=== PATIENT | male | born 1970 | race Two or more races ===

== ENCOUNTER 2023-04-12 13:00 | Outpatient (OUT) | payer OTHER, SELFPAY | END 2023-04-12 13:01 | disposition home or self-care (01) | LOC: PST 04-26 18:11 | PROVIDERS: PCP Nurse Practitioner Primary Care; Visit Provider Surgery | DX: Z01.818 Encounter for other preprocedural examination (principal); Z12.11 Encounter for screening for malignant neoplasm of colon ==

== ENCOUNTER 2023-04-20 07:45 | Day surgery (SDC) | payer OTHER, SELFPAY ==
[2023-04-20 08:10] VITALS: BP 130/81; PULSE 77; RESP 16; TEMP 36.1; O2SAT 100; BMI 32.7
[2023-04-20] MEDS: LACTATED RINGER'S SOLUTION 1,000 ML 50 ML IV (08:17)
[2023-04-20 08:59] VITALS: BP 128/80; PULSE 78; RESP 16; TEMP 36.2; O2SAT 96
--- NOTE | 2023-04-20 09:06 | PM.GSPRC ---
Indications for Procedure: This patient is a 52-year-old male who presents for screening colonoscopy. The risks benefits options and potential complications of the procedure were discussed in detail with the patient and they agreed to proceed and consent was signed. Pre-op diagnosis: colon cancer screening Post-op diagnosis: other (normal exam) Procedure: colonoscopy Anesthesia: MAC Surgeon: Asael Ohara Procedure Summary: The patient was brought to the endoscopy suite and placed in the left lateral decubitus position.? Under MAC the fiberoptic colonoscope was introduced into the rectum. This was gradually advanced through the colon to the cecum. The cecal landmarks were identified. The bowel prep was marginal limiting visualization. Gradual withdrawal of the colonoscope was then undertaken. No vascular polypoid or mucosal lesions were noted throughout the entire length of the colon. The anal rectal canal was unremarkable. The colon was decompressed. Digital rectal exam was unremarkable. The procedure was ended and the patient was transferred to the recovery area in stable condition. Recommended follow-up colonoscopy in ten years. Estimated blood loss (mL): 0 Specimens: none Complications: No
[2023-04-20 09:14] VITALS: BP 150/104; PULSE 70; RESP 16; O2SAT 97
[2023-04-20 09:29] VITALS: BP 147/88; PULSE 66; RESP 20; O2SAT 99
== END 2023-04-20 09:29 | disposition home or self-care (01) ==
PROVIDERS: PCP Nurse Practitioner Primary Care; Visit Provider Surgery
PROC: (CPT 45378; principal; 2023-04-20 09:20)
DX: Z12.11 Encounter for screening for malignant neoplasm of colon (principal); K21.9 Gastro-esophageal reflux disease without esophagitis
CPT/HCPCS: 45378; J2704

== ENCOUNTER 2023-07-17 10:00 | Outpatient (OUT) | payer OTHER, SELFPAY ==
[2023-07-17 11:38] LABS: Chol HDL Ratio 4.8; Cholesterol 208 mg/dL (<=200); HDL Cholesterol 43 mg/dL (40-60); Triglycerides 107 mg/dL (<=150); VLDL CHOLESTEROL 21.4 mg/dL
== END 2023-07-17 10:01 | disposition home or self-care (01) ==
LOC: LAB 10:01
PROVIDERS: PCP Nurse Practitioner Primary Care; Visit Provider Nurse Practitioner Primary Care
DX: E78.2 Mixed hyperlipidemia (principal)
CPT/HCPCS: 36415; 80061

== ENCOUNTER 2024-01-17 11:35 | Outpatient (OUT) | payer OTHER, SELFPAY ==
[2024-01-17 12:28] LABS: Alanine Aminotransferase 24 U/L (16-63); Albumin Globulin Ratio 1.1; Albumin Level 3.8 g/dL (3.4-5.0); Alkaline Phosphatase 115 U/L (46-116); Anion Gap 13.4; Aspartate Amino Transferase 16 U/L (15-37); Bilirubin Total 0.6 mg/dL (0.2-1.0); Calcium 9.3 mg/dL (8.5-10.1); Carbon Dioxide 28.3 mmol/L (21.0-32.0); Chloride 104 mmol/L (98-107); Chol HDL Ratio 2.6; Cholesterol 123 mg/dL (<=200); Estimated GFR (African America >60 (>=60); Estimated GFR (Non-African Ame >60 (>=60); Globulin 3.5 g/dL; Glucose 106 mg/dL (74-106); HDL Cholesterol 47 mg/dL (40-60); Potassium 4.7 mmol/L (3.5-5.1); Sodium 141 mmol/L (136-145); Total Protein 7.3 g/dL (6.4-8.2); Triglycerides 60 mg/dL (<=150)
== END 2024-01-17 11:36 | disposition home or self-care (01) ==
LOC: LAB 11:37
PROVIDERS: PCP Nurse Practitioner; Visit Provider Nurse Practitioner
DX: E78.2 Mixed hyperlipidemia (principal)
CPT/HCPCS: 36415; 80053; 80061

== ENCOUNTER 2025-03-30 09:46 | Outpatient (OUT) | payer OTHER, SELFPAY ==
--- OUTSIDE RECORDS SUMMARY | 2024-12-25 06:30 | XMS_ITS ---
Author Organization [facility] vices Address [address] [place] [id number] Care Team Providers Care Resident Services Manager Name Role Phone Meena Deluna Primary Care Provider Gage Hobbs Unavailable [phone] REASON FOR VISIT 5 week Cough Social History Sex Assigned At : Social History Observation Description Sex Assigned At Male Encounters Encounter Location Date Provider Diagnosis Main [address] [place] [id number] 12/25/2024 Gage Hobbs Plan Of Treatment No Information Progress Notes * Lars ENNISDOB:1970 ([age] yo M)Acc No.[id number]:12/25/2024 Medical Note Patient: Lars [place] Provider: Christina Hobbs :1970 A ge:54 Y S ex:Male Date:12/25/2024 Address:[address] [place], [place] [id number] Pcp:eMena Deluna Subjective: * Chief Complaints: * 1 . 5 week Cough. * Medical History: Objective: * Vitals: Assessment: Plan: * Treatment: * Billing Information: * Visit Code: * Procedure Codes: * Electronic signature of ALAINA Ortega on 03/30/2025 at 09:51 AM EDT Sign off status: Pending * Provider: Christina Hobbs Date: 0 12/25/2024 Generated for Mary roberts/Jailyn/Pradeep on: 0 03/30/2025 09:51 AM EDT
[2025-03-30 10:15] LABS: Hematocrit 41.2 % (42.0-54.0); Hemoglobin 14.4 g/dL (14.0-18.0); Mean Corpuscular Hemoglobin 31.4 pg (25.9-34.0); Mean Corpuscular Volume 89.8 fL (80.0-94.0); Platelet Count 221 10^3/uL (150-450); Red Blood Count 4.59 10^6/uL (4.70-6.10); White Blood Count 9.8 10^3/uL (4.0-11.0)
[2025-03-30 10:45] LABS: Alanine Aminotransferase 24 U/L (16-63); Albumin Globulin Ratio 1.2; Albumin Level 3.8 g/dL (3.4-5.0); Alkaline Phosphatase 100 U/L (46-116); Anion Gap 12.8; Aspartate Amino Transferase 14 U/L (15-37); BUN Creatinine Ratio 11.8; Bilirubin Total 0.5 mg/dL (0.2-1.0); Calcium 8.8 mg/dL (8.5-10.1); Carbon Dioxide 29.6 mmol/L (21.0-32.0); Chloride 107 mmol/L (98-107); Chol HDL Ratio 2.6; Cholesterol 126 mg/dL (<=200); Estimated GFR (African America >60 (>=60 mL/min/1.73m^2); Estimated GFR (Non-African Ame >60 (>=60 mL/min/1.73m^2); Globulin 3.2 g/dL; Glucose 118 mg/dL (74-106); HDL Cholesterol 49 mg/dL (40-60); LDL Cholesterol Calculated 63.8 mg/dL; Potassium 4.4 mmol/L (3.5-5.1); Sodium 145 mmol/L (136-145); Triglycerides 66 mg/dL (<=150); VLDL CHOLESTEROL 13.2 mg/dL
== END 2025-03-30 09:47 | disposition home or self-care (01) ==
PROVIDERS: PCP Nurse Practitioner; Visit Provider Nurse Practitioner
DX: E78.5 Hyperlipidemia, unspecified (principal)
CPT/HCPCS: 36415; 80053; 80061; 85027